=== PATIENT | male | born 1940 | race Caucasian/White ===

== ENCOUNTER 2018-10-31 14:07 | Emergency (ER) | payer MEDICARE, OTHER ==
[~2018-10-31] VITALS: Ht 177.8 cm; Wt 86.2 kg
[~2018-10-31 14:07] MED LIST: ADVIL200 MG PO; ASPIR-LOW81 MG PO; ATENOLOL25 MG PO; AUGMENTIN 875-1 EACH PO; BUMETANIDE1 MG PO; LEVOTHYROXINE88 MCG PO; LIPITOR10 MG PO; METFORMIN HCL1000 MG PO; METOPROLOL SUCC25 MG PO; MULTI-VITAMIN1 EACH PO; TIZANIDINE HCL2 M1 PO; VITAMIN D35000 UNI1 PO; ZALEPLON10 MG PO
--- OUTSIDE RECORDS SUMMARY | 2018-10-31 14:10 | XMS ---
PreManage Notification: ANDREY [employer] Security Personal Care Service Provider Events No recent Security Events currently on file CRITERIA MET - MANAV CARE PROVIDERS Baljeet Leiva Treatment Current PHONE: Unknown [place] [facility] Current Orthopedic Surgery \T\ [facility] PHONE: Unknown Namrata has no Care Guidelines for this patient. Veronique VISIT COUNT (12 MO.) Kayla Palomo TOTAL 1 NOTE: Visits indicate total known visits. ED/UCC VISIT TRACKING (12 MO.) 10/31/2018 14:08 [facility] OR TYPE: Emergency COMPLAINT: - FALL/INJURY CHEST PAIN INPATIENT VISIT TRACKING (12 MO.) No inpatient visits to display in this time frame [email or web address]
--- NOTE | 2018-11-01 07:59 | EKG ---
[facility] [address] [place] [address] Signed Sinus rhythm with occasional premature ventricular complexes and premature atrial complexes Left axis deviation Right bundle branch block Septal infarct , age undetermined Abnormal ECG No previous ECGs available Confirmed by FÉLIX HUFFMAN MD ([id number]) on 11/01/2018 7:59:14 AM Electronically Signed By: FÉLIX HUFFMAN MD 11/01/18 0759 PATIENT NAME: ARNELANDREY PARKINSON Electrocardiogram DATE OF : 44 PHYSICIAN: FÉLIX HUFFMAN MD REPORT #: [id number] REPORT IS CONFIDENTIAL AND NOT TO BE RELEASED WITHOUT AUTHORIZATION
== END 2018-10-31 19:37 | disposition short-term general hospital (02) ==
LOC: ED 14:07
DX: I20.0 Unstable angina (principal); R79.89 Other specified abnormal findings of blood chemistry; Z79.899 Other long term (current) drug therapy; Z79.84 Long term (current) use of oral hypoglycemic drugs; Z79.82 Long term (current) use of aspirin
CPT/HCPCS: 70450; 71045; 72125; 80053; 84484; 85025; 93005; 93010; 99285-25

== ENCOUNTER 2021-04-12 12:05 | Emergency (ER) | payer MEDICARE ==
[~2021-04-12] VITALS: Ht 177.8 cm; Wt 77.1 kg
== END 2021-04-12 15:46 | disposition home or self-care (01) ==
LOC: ED 12:05
DX: U07.1 COVID-19 (principal); J12.82 Pneumonia due to coronavirus disease 2019; Z23 Encounter for immunization; E78.5 Hyperlipidemia, unspecified; Z79.899 Other long term (current) drug therapy; Z79.84 Long term (current) use of oral hypoglycemic drugs; Z79.82 Long term (current) use of aspirin
CPT/HCPCS: 71045; 99285-25; C9803; M0247; U0003